=== PATIENT | male | born 1975 | race Asian ===

== ENCOUNTER 2017-02-15 11:18 | Emergency (ER) | payer OTHER ==
[~2017-02-15] VITALS: Ht 170.2 cm; Wt 68.0 kg
[2017-02-15 11:26] VITALS: BP 123/89
--- NOTE | 2017-02-15 12:35 | NUR ---
pt ambulated to bed 8
--- NOTE | 2017-02-15 12:41 | NUR ---
PATIENT PRESENTS TO ED WITH C/O LEFT FOOT PAIN;BASE OF THE GREAT TOE IS INFLAMED AND REDNESS IS NOTED; DENIES N/V/D; SKIN IS PINK/WARM/DRY; AAOX4 WITH EVEN AND STEADY GAIT; LUNGS CLEAR BL; HR EVEN AND REGULAR; PT DENIES ANY FEVER, CP, SOB, OR COUGH AT THIS TIME; PATIENT STATES PAIN OF 7/10 AT THIS TIME; VSS; PATIENT POSITIONED FOR COMFORT; HOB ELEVATED; BEDRAILS UP X2; BED DOWN.
--- NOTE | 2017-02-15 12:54 | NUR ---
Dr. Soliman evaluating patient at bedside.
[2017-02-15] MEDS ORDERED: COLCHICINE 0.6 MG TAB PO ONE (12:55)
[2017-02-15] MEDS ORDERED: INDOMETHACIN 25 MG CAP PO ONE (13:00)
--- NOTE | 2017-02-15 13:10 | NUR ---
CALLED PHARMACY;INFORMED THAT COLCHICINE IS NOT LOADED TO THE PHYXIS;THEY SAID THEY WILL BRING IT TO ER.
--- NOTE | 2017-02-15 13:16 | NUR ---
Dr. Soliman re-evaluating patient at bedside.
--- NOTE | 2017-02-15 14:12 | NUR ---
Patient discharged with v/s stable. Written and verbal after care instructions given and explained. Patient alert, oriented and verbalized understanding of instructions. Ambulatory with steady gait. All questions addressed prior to discharge. ID band removed. Patient advised to follow up with PMD. Rx of COLCHICINE AND INDOMETHACIN given. Patient educated on indication of medication including possible reaction and side effects. Opportunity to ask questions provided and answered.
[2017-02-15 14:13] VITALS: BP 118/76
== END 2017-02-15 14:12 | disposition home or self-care (01) ==
LOC: MED 11:18
DX: M10.9 Gout, unspecified (principal); R03.0 Elevated blood-pressure reading, without diagnosis of hypertension
CPT/HCPCS: 36415; 84550; 99283

== ENCOUNTER 2017-02-17 05:08 | Emergency (ER) | payer OTHER ==
[~2017-02-17] VITALS: Ht 170.2 cm; Wt 68.0 kg
[2017-02-17 05:14] VITALS: BP 115/69
--- NOTE | 2017-02-17 05:22 | NUR ---
TO ER BED 3
--- NOTE | 2017-02-17 05:27 | NUR ---
41Y/M PATIENT PRESENTS TO ED WITH C/O N/V X 1 DAY . PT STATES N/V X4, DIARRHEA X3, NO FEVER; SKIN IS PINK/WARM/DRY; AAOX4 WITH EVEN AND STEADY GAIT; LUNGS CLEAR BL; HR EVEN AND REGULAR; PT DENIES ANY FEVER, CP, SOB, OR COUGH AT THIS TIME;C/O LT. FOOT PAIN, PATIENT STATES PAIN OF 2/10 AT THIS TIME; VSS; PATIENT POSITIONED FOR COMFORT; HOB ELEVATED; BEDRAILS UP X2; BED DOWN. ER MD MADE AWARE OF PT STATUS.
--- NOTE | 2017-02-17 06:10 | NUR ---
Patient being evaluated by DR. JOYA at bedside.
[2017-02-17] MEDS ORDERED: NACL 0.9% 1,000 ML IV ONE (06:15)
[2017-02-17] MEDS ORDERED: ONDANSETRON 4 MG/2 ML VIAL IVP ONE (06:15)
--- NOTE | 2017-02-17 06:28 | NUR ---
IV 20GA GA RT A/C DONE, BLOOD SENT TO LAB. IVP.IVF MEDS GIVEN-WITH NADR AT THIS TIME.
[2017-02-17 07:07] VITALS: BP 100/70
--- NOTE | 2017-02-17 07:07 | NUR ---
Patient discharged with v/s stable. Written and verbal after care instructions given and explained. Patient alert, oriented and verbalized understanding of instructions. Ambulatory with steady gait. All questions addressed prior to discharge. ID band removed. Patient advised to follow up with PMD. Rx of ZOFRAN 4 MG given. Patient educated on indication of medication including possible reaction and side effects. Opportunity to ask questions provided and answered.
== END 2017-02-17 07:07 | disposition home or self-care (01) ==
LOC: MED 05:08
DX: A08.4 Viral intestinal infection, unspecified (principal); M10.9 Gout, unspecified
CPT/HCPCS: 96374; 99284; J2405; J7030

== ENCOUNTER 2018-04-18 09:26 | Emergency (ER) | payer OTHER ==
[~2018-04-18] VITALS: Ht 170.2 cm; Wt 68.0 kg
--- NOTE | 2018-04-18 09:41 | NUR ---
PATIENT TO BED 11 AT THIS TIME.
[2018-04-18 09:47] VITALS: BP 130/79
--- NOTE | 2018-04-18 09:55 | NUR ---
pt. came into the ed w/c /o pain to right 3rd knuckle x 2 days. pt. states " I went to my sisters house and i had some crab about 2 days ago and ever since then the pain started and my knuckle got swollen". rr even and unlabored. denies n/v/d, denies chest pain, denies sob. pt. is awake and alert x 4. Pt. has redness and swelling to r third knuckle. 8/10 pain that is radiating from r third knuckle all over his hand and described as throbbing. Pt. denies any injury or fall. ER md notified, will continue to monitor. safety precautions initiated.
[2018-04-18] MEDS ORDERED: IBUPROFEN 400 MG TAB PO ONE (10:00)
[2018-04-18 10:29] VITALS: BP 130/79
--- NOTE | 2018-04-18 10:29 | NUR ---
Patient discharged with v/s stable. Written and verbal after care instructions given and explained. Patient alert, oriented and verbalized understanding of instructions. Ambulatory with steady gait. All questions addressed prior to discharge. ID band removed. Patient advised to follow up with PMD. Rx of NORCO, INDOMETHACIN, COLCHICINE given. Patient educated on indication of medication including possible reaction and side effects. Opportunity to ask questions provided and answered.
== END 2018-04-18 10:29 | disposition home or self-care (01) ==
LOC: MED 09:26
DX: M10.9 Gout, unspecified (principal); R03.0 Elevated blood-pressure reading, without diagnosis of hypertension
CPT/HCPCS: 99283